=== PATIENT | female | born 1925 | race Caucasian/White ===

== ENCOUNTER 2016-11-13 18:13 | Inpatient (IN) | payer MEDICARE, BC ==
--- NOTE | ~2016-11-13 | HP ---
Unit #: [id number] #: [id number] Patient: CAMERON RICH [id number] [address] [place], [place] [address] [id number] I MR#: [id number] NAME: CAMERON RICH. ROOM: 14955 Age: 89 Sex: F Admission Date: 11/13/2016 : 1925 Attending Physician: Yvonne Berry M.D. Primary Care Physician: No Primary Care Physician HISTORY AND PHYSICAL CHIEF COMPLAINT Increased confusion, acute hypoxic respiratory failure. HISTORY This 89-year-old female with dementia, COPD, lung nodule, is admitted for increased confusion. Patient lives at [facility], was sent to this emergency department for worsening confusion. An O2 sat initially could not be obtained but was 78% on room air when she arrived to the ER. Patient was extremely confused and agitated, aggressive with staff; required a small dose of ketamine just to do workup. She was found to have a low-grade temperature, acute hypoxic respiratory failure, elevated lactic acid level. Her chest x-ray shows chronic changes. It was initially thought she could have a UTI and she was given Rocephin but her urinalysis is negative. PAST MEDICAL HISTORY 1. Pulmonary nodule concerning for lung cancer. Family does not desire further workup or intervention. 2. Admission 05/2015 for traumatic subarachnoid hemorrhage following a fall along with rhabdomyolysis. 3. COPD. 4. Dementia. 5. Left hip fracture, status post ORIF 05/2014. ALLERGIES Penicillin, sulfa and aspirin. FPC MEDICATIONS 1. Macrobid 100 mg b.i.d. which completed today. 2. Florastor 250 mg b.i.d. 3. Depakote 500 mg q.h.s. 4. Guaifenesin p.r.n. 5. P.r.n. Tylenol, MOM, skin lotions and creams. FAMILY HISTORY Noncontributory given the patient's age. SOCIAL HISTORY The patient lives at [facility] in the care of Dr. Myke Syed. Remote history of tobacco use, does not drink alcohol. Unit #: [id number] #: [id number] Patient: CAMERON RICH REVIEW OF SYSTEMS Impossible to obtain as patient is quite confused. PHYSICAL EXAMINATION GENERAL: Confused, intermittently agitated 89-year-old female. VITAL SIGNS: Rectal temperature 99.3. Blood pressure 93/62. O2 saturation is 100% on 50% Venti mask. Heart rate 108. HEENT EXAMINATION: Eyes PERRLA. Pharynx dentures in place. NECK: Supple, without adenopathy or thyromegaly. CHEST: Diminished breath sounds. CARDIAC: Normal S1 and S2, without definite murmur. ABDOMEN: Bowel sounds are present. No hepatosplenomegaly, tenderness or masses. EXTREMITIES: Without edema. NEUROLOGIC EXAM: Patient is completely disoriented. Her cranial nerves are intact. She has equal strength throughout. She is lashing out at staff. DIAGNOSTIC STUDIES ADMISSION LABORATORY: Hematocrit is 43.6, white blood count is 21.4 with five bands. SMA-12: Sodium 131, glucose was 185. Ammonia level is less than 9. Lactic acid is 3. Depakote is 44. ABG: pH 7.34, pCO2 of 45, pO2 83, O2 saturation is 94.8% on a 50% Venti mask. Urinalysis trace protein. IMAGING: Chest x-ray COPD, right upper lobe pulmonary nodule, chronic interstitial changes bilaterally. CARDIOVASCULAR: EKG sinus tachycardia, rate 126. ASSESSMENT 1. Toxic-metabolic encephalopathy superimposed on dementia. 2. Acute hypoxic respiratory failure. Rule out healthcare-associated pneumonia with underlying chronic obstructive pulmonary disease. 3. Likely lung cancer. 4. Traumatic subarachnoid hemorrhage 05/2015. PLANS 1. DuoNebs, steroids, will place on cefepime and vancomycin pending repeat chest x-ray versus CT scan in the morning. 2. Obtain Dopplers of the legs to rule out DVT. I am unable to perform a CTA of the chest given agitation. 3. Low dose Haldol. 4. DVT prophylaxis. 5. IV fluids and repeat lactic acid level shortly. 6. I discussed care with the patient's son. At this time the patient is a Full Code. 7. Long-term prognosis is poor. Dictated by Yvonne Berry M.D. AML/cf Unit #: [id number] #: [id number] Patient: CAMERON RICH TD: 11/13/2016 22:41 JOB #: [id number] CC: Myke Syed M.D. HISTORY AND PHYSICAL Page 1 of 1 X Yvonne Berry MD HISTORY AND PHYSICAL
--- NOTE | ~2016-11-13 | EKG ---
PATIENT: CAMERON RICH UNIT #: [id number] Ventricular Rate: 126 BPM Atrial Rate: 126 BPM P-R Interval: 138 ms QRS Duration: 62 ms Q-T Interval: 308 ms QTC Calculation(Bezet): 446 ms P [place]: 81 degrees Calculated R [place]: 79 degrees Calculated T [place]: 64 degrees Diagnosis Line: Sinus tachycardia Diagnosis Line: Nonspecific ST abnormality Diagnosis Line: Abnormal ECG Diagnosis Line: When compared with ECG of 25-MAY-2015 14:57, Diagnosis Line: Nonspecific T wave abnormality no longer evident Diagnosis Line: in Inferior leads Diagnosis Line: Nonspecific T wave abnormality no longer evident Diagnosis Line: in Anterior leads Diagnosis Line: Confirmed by MARTÍNEZ KRISHNAN MD ([id number]) on 11/14/2016 Diagnosis Line: 5:50:04 AM INTERPRETING MD: ARIELLA BERGMAN
--- NOTE | ~2016-11-13 | CT71 ---
[facility] A Service [facility] RADIOLOGY TEXT RESULTS PATIENT: CAMERON RICH LOCATION: [place] [address] : [birth year] UNIT #: [id number] AGE: [address]: Lyndon Martines MD SEX: F ORDER DR: [id number] [place] [id number] [facility]. [place], [place] [address] [id number] I MR#: [id number] Acc #: [id number] NAME: CAMERON RICH : 1925 SEX: F STUDY DATE/TIME: 11/13/2016 20:13 UNIT: [facility] ROOM: [facility] STUDY DESCRIPTION: CT Head Wo Contrast Attending Physician: Lyndon Martines M.D. Ordering Physician: Augusto Bazzi M.D. Primary Care Physician: Primary Care Physician No MEDICAL IMAGING REPORT This report is preliminary unless electronic signature is present EXAM CT head HISTORY Altered mental status and confusion. UTI. Combative. TECHNIQUE CT of the head without contrast. This CT exam was performed with one or more of the following radiation dose reduction techniques: automatic exposure control, adjustment of mA and/or kV according to patient size, and iterative reconstruction. COMPARISON CT head, 05/25/2015 FINDINGS There is no acute intracranial hemorrhage, mass lesion, or acute infarct. There is generalized global cerebral atrophy and some chronic small vessel changes. This is similar to the prior CT scan. The ventricles and basilar cisterns are mildly prominent, however this is felt to be commensurate with the degree of volume loss. No extraaxial collections. No acute osseous abnormalities. IMPRESSION 1. No acute intracranial findings. 2. Atrophy and chronic small vessel changes. Dictated by... Pablo Martinez M.D. [facility] A Service [facility] RADIOLOGY TEXT RESULTS PATIENT: CAMERON RICH LOCATION: [place] [address] : [birth year] UNIT #: [id number] AGE: [address]: Lyndon Martines MD SEX: F ORDER DR: THIS IS AN ELECTRONICALLY VERIFIED REPORT Pablo Martinez M.D. at 11/14/2016 10:55 AM Deep TD: 11/14/2016 10:15 JOB #: [id number] MEDICAL IMAGING REPORT Page 1 of 1 COPY
--- NOTE | ~2016-11-13 | CR72 ---
[facility] A Service of [facility] RADIOLOGY TEXT RESULTS PATIENT: CAMERON RICH LOCATION: [place] [address]- : [birth year] UNIT #: [id number] AGE: [address]: Lyndon Martines MD SEX: F ORDER DR: [id number] [facility] [address] [place], [place] [address] [id number] I MR#: [id number] Acc #: [id number] NAME: CAMERON RICH. : 1925 SEX: F STUDY DATE/TIME: 11/14/2016 12:17 UNIT: [facility] ROOM: [facility] STUDY DESCRIPTION: CR Chest Single View Portable Attending Physician: Lyndon Martines M.D. Ordering Physician: Lyndon Martines M.D. Primary Care Physician: Primary Care Physician No MEDICAL IMAGING REPORT This report is preliminary unless electronic signature is present EXAM Portable chest 11/14 INDICATIONS Shortness of air with mental status changes for 2 days. TECHNIQUE/COMPARISON AP portable views of the chest are compared 11/14/2016 FINDINGS Heart size is stable. Right upper lobe mass is unchanged in the interval. There is emphysema with atelectasis or infiltrate in the bases. Small bilateral pleural effusions are suspected. No visible pneumothorax. Dictated by... Augusto Sims Jr., M.D. THIS IS AN ELECTRONICALLY VERIFIED REPORT Augusto Sims Jr., M.D. at 11/16/2016 7:18 AM RLK/rossy TD: 11/14/2016 18:06 JOB #: [id number] MEDICAL IMAGING REPORT Page 1 of 1 COPY
--- NOTE | ~2016-11-13 | CR72 ---
[facility] A Service of [facility] RADIOLOGY TEXT RESULTS PATIENT: CAMERON RICH LOCATION: [place] [address] : [birth year] UNIT #: [id number] AGE: [address]: Lyndon Martines MD SEX: F ORDER DR: [id number] [facility] [address] [place], [place] [address] [id number] I MR#: [id number] Acc #: [id number] NAME: CAMERON RICH : 1925 SEX: F STUDY DATE/TIME: 11/13/2016 19:33 UNIT: [facility] ROOM: [facility] STUDY DESCRIPTION: CR Chest Single View Portable Attending Physician: Lyndon Martines M.D. Ordering Physician: Augusto Bazzi M.D. Primary Care Physician: Primary Care Physician No MEDICAL IMAGING REPORT This report is preliminary unless electronic signature is present EXAM Single view chest INDICATION Hypoxia. Altered mental status. Shortness of air. FINDINGS Single portable AP view of the chest compared to 05/27/2015. Heart and mediastinal contours are unchanged. There is chronic interstitial opacities and emphysema in both lungs. There is a right upper lobe pulmonary nodule that is unchanged. No pleural effusion. IMPRESSION 1. No interval change. 2. Emphysema and chronic interstitial opacities. 3. Right upper lobe pulmonary nodule. Dictated by... Pablo Martinez M.D. THIS IS AN ELECTRONICALLY VERIFIED REPORT Pablo Martinez M.D. at 11/14/2016 10:51 AM Deep TD: 11/14/2016 09:55 JOB #: [id number] MEDICAL IMAGING REPORT Page 1 of 1 COPY
--- NOTE | ~2016-11-13 | DS ---
Unit #: [id number] #: [id number] Patient: CAMERON RICH N [id number] [address] [place], [place] [address] [id number] I MR#: [id number] NAME: CAMERON RICH ROOM: 463 Age: 89 Sex: F Admission Date: 11/13/2016 : 1925 Discharge Date: 11/15/2016 Attending Physician: Lyndon Martines M.D. Primary Care Physician: No Primary Care Physician DISCHARGE SUMMARY REASON FOR ADMISSION Acute hypoxic respiratory failure. HISTORY OF PRESENT ILLNESS/HOSPITAL COURSE Please refer to H and P for complete details of initial part of hospital stay. Patient essentially an 89-year-old female with a history of end-stage dementia with associated behavioral disturbance, who resides at a long-term nursing care facility was noted to have acute hypoxic respiratory failure with decreased O2 saturations, was subsequently brought to the hospital for further evaluation. After review and initial workup, the patient was placed on routine medications including Solu-Medrol, antibiotics as well as aerosol treatments. She does have a prior history of presumed lung carcinoma with a previously diagnosed lung nodule in 2015 that was not worked up, essentially secondary to family decision. Upon review and discussion extensively yesterday on November 14, 2016, and review of patient's overall well being, plan of care, quality of life, decision has been made for comfort measures only. All parties are in agreement. The case was extensively discussed with the patient's son, who was currently the power of county attorney as well. We are awaiting Hospice evaluation. Once Hospice evaluates patient, disposition will be further planned per their service. The son understands the patient's overall prognosis is poor. FINAL DISCHARGE DIAGNOSES 1. Acute delirium on dementia. 2. End-stage dementia with associated behavioral disturbance. 3. Presumed lung carcinoma. 4. Failure to thrive. 5. Malnutrition. 6. Acute hypoxic respiratory failure seen on admission. Plan per Hospice care. Dictated by... Lyndon Martines M.D. LUIS/hoa TD: 11/16/2016 10:30 Unit #: [id number] #: [id number] Patient: CAMERON RICH JOB #: [id number] DISCHARGE SUMMARY Page 1 of 1 X Lyndon Martines MD X DISCHARGE SUMMARY
[~2016-11-13 18:13] MED LIST: NO MEDICATIONS
[2016-11-13 19:08] LABS: ARTERIAL BLD GAS O2 SATURATION 94.8 % (90.0-100.0); ARTERIAL BLOOD GAS CARBOXY HB 0.6 %sat (0.0-9.0); ARTERIAL BLOOD GAS HCO3 24.2 mmol/L; ARTERIAL BLOOD GAS MET HB 0.1 %sat (0.0-2.0); ARTERIAL BLOOD GAS PCO2 45.2 mmHg (35.0-45.0); ARTERIAL BLOOD GAS PO2 83.7 mmHg (80.0-100); ARTERIAL BLOOD GAS pH 7.338 (7.350-7.450)
[2016-11-13 19:12] LABS: ARTERIAL BLOOD GAS ART SITE RIGHT FEMORAL; ARTERIAL BLOOD GAS DELIVERY VENTURI MASK; ARTERIAL DRAW? YES
[2016-11-13 20:02] LABS: URINE SOURCE CLEAN CATCH
[2016-11-13 20:06] LABS: BASOPHIL# 0.1 X10e3 (0-0.3); BASOPHIL% 0.5 % (0-2.5); EOSINOPHIL# 0.1 X10e3 (0-0.7); EOSINOPHIL% 0.3 % (0.0-7.0); HEMATOCRIT 43.6 % (35.0-45.0); LYMPHOCYTE# 0.4 X10e3 (1.0-3.5); MEAN CELL VOLUME 88.4 FL (83-96); MEAN CORPUSCULAR HEMOGLOBIN 28.4 PG (28-34); MEAN CORPUSCULAR HGB CONC 32.1 g/dL (30-36); MEAN PLATELET VOLUME 8.9 FL (6.5-11.5); MONOCYTE# 1.3 X10e3 (0-1.0); MONOCYTE% 5.9 % (3.0-12.0); NEUTROPHIL# 19.6 X10e3 (1.5-7.1); NEUTROPHIL% 91.3 % (40-75); PARTIAL THROMBOPLASTIN TIME 26.1 SECONDS (23.5-31.3); PLATELET COUNT 281 X10e3 (140-420); PROTHROMBIN TIME (PATIENT) 11.2 SECONDS (10.0-11.7); RED BLOOD COUNT 4.94 X10e (3.90-5.30); RED CELL DISTRIBUTION WIDTH 13.2 % (11.0-15.5); WHITE BLOOD COUNT 21.4 X10e3 (4.0-10.5)
[2016-11-13 20:09] LABS: DIFF IND YES
[2016-11-13 20:11] LABS: URINE APPEARANCE CLEAR; URINE BILIRUBIN NEG (NEG); URINE BLOOD NEG (NEG); URINE COLOR DK YELLOW; URINE GLUCOSE NEG (NEG); URINE KETONE TRACE (NEG); URINE LEUKOCYTE ESTERASE NEG (NEG); URINE NITRATE NEG (NEG); URINE PROTEIN TRACE (NEG); URINE SPECIFIC GRAVITY 1.026 (1.003-1.035); URINE UROBILINOGEN 0.2 MG/DL (NEG)
[2016-11-13 20:15] LABS: ALBUMIN SERUM 3.5 g/dL (3.5-5.0); BILIRUBIN, DIRECT 0.1 mg/dL (0.0-0.2); BILIRUBIN,INDIRECT 0.3 mg/dL (0.0-0.9); BILIRUBIN,TOTAL 0.4 mg/dL (0.2-2.0); CALCIUM SERUM 8.7 mg/dL (8.4-10.2); CREATININE SERUM 0.5 mg/dL (0.6-1.4); GLOM FILT RATE Estimated 85.8 mL/min (>60); POTASSIUM 4.2 mmol/L (3.5-5.1); PROTEIN TOTAL SERUM 7.6 g/dL (6.0-8.3)
[2016-11-13 20:25] LABS: CULTURE INDICATED? NO
[2016-11-13 20:45] LABS: PLATELET ESTIMATE NORMAL (NORMAL); RBC NORMAL YES
[2016-11-13] MEDS ORDERED: MACROBID100 M1 PO (21:00)
[2016-11-13] MEDS ORDERED: DEPAKOTE ER PO (21:01)
[2016-11-13] MEDS ORDERED: FLORASTORKIDS250 MG PO (21:01)
[2016-11-13] MEDS ORDERED: TYL325 PO (21:02)
[2016-11-13] MEDS ORDERED: MILK OF MAGNESIA PO (21:02)
[2016-11-13] MEDS ORDERED: GERI-TUSSI100 MG/5 M PO (21:02)
[2016-11-14 04:29] LABS: BASOPHIL# 0.1 X10e3 (0-0.3); BASOPHIL% 0.4 % (0-2.5); DIFF IND NO; EOSINOPHIL# 0.3 X10e3 (0-0.7); EOSINOPHIL% 2.1 % (0.0-7.0); HEMATOCRIT 39.5 % (35.0-45.0); HEMOGLOBIN 12.6 gm/dL (12.0-16.0); LYMPHOCYTE# 1.5 X10e3 (1.0-3.5); LYMPHOCYTE% 9.8 % (17.0-45.0); MEAN CELL VOLUME 88.2 FL (83-96); MEAN CORPUSCULAR HEMOGLOBIN 28.1 PG (28-34); MEAN CORPUSCULAR HGB CONC 31.9 g/dL (30-36); MEAN PLATELET VOLUME 8.2 FL (6.5-11.5); MONOCYTE# 0.9 X10e3 (0-1.0); MONOCYTE% 6.1 % (3.0-12.0); NEUTROPHIL# 12.2 X10e3 (1.5-7.1); NEUTROPHIL% 81.6 % (40-75); PLATELET COUNT 225 X10e3 (140-420); RED BLOOD COUNT 4.47 X10e (3.90-5.30); RED CELL DISTRIBUTION WIDTH 13.1 % (11.0-15.5)
[2016-11-14 05:04] LABS: BUN/CREATININE RATIO 22.5; CALCIUM SERUM 7.9 mg/dL (8.4-10.2); CREATININE SERUM 0.4 mg/dL (0.6-1.4); GLOM FILT RATE Estimated 92.4 mL/min (>60); POTASSIUM 3.9 mmol/L (3.5-5.1)
[2016-11-14 05:23] LABS: %MB 3.4 % (0.0-4.0); MB 5.6 ng/ml
== END 2016-11-16 16:25 | DRG 189 ==
LOC: CED 18:13 → C4C 21:42 → CEDOF 21:42 → C4C 23:51 → CEDOF 23:51 → C4C 11-14 07:47
PROVIDERS: Emergency Medicine; Internal Medicine
DX: J96.01 Acute respiratory failure with hypoxia (principal); E46 Unspecified protein-calorie malnutrition; J44.9 Chronic obstructive pulmonary disease, unspecified; F05 Delirium due to known physiological condition; C34.90 Malignant neoplasm of unspecified part of unspecified bronchus or lung; F03.91 Unspecified dementia, unspecified severity, with behavioral disturbance; Z68.1 Body mass index [BMI] 19.9 or less, adult; Z88.6 Allergy status to analgesic agent; Z88.0 Allergy status to penicillin; Z88.2 Allergy status to sulfonamides; R62.7 Adult failure to thrive
CPT/HCPCS: 36600; 51701; 70450; 71010; 80048; 80076; 80164; 81003; 82140; 82550; 82553; 82803; 83605; 83880; 84484; 85025; 85610; 85730; 87040; 93005; 94640; 94760; 96360; 96372; 99285; J0692; J0696; J1630; J1650; J3370